=== PATIENT | female | born 2000 | race Caucasian/White ===

== ENCOUNTER 2018-12-22 12:25 | Outpatient (RCR) | payer BC, OTHER ==
[~2018-12-22 12:25] MED LIST: AMOX500C2 PO; FLVX50T PO; MULT-608 PO
== END 2019-03-22 | disposition home or self-care (01) ==
LOC: CARD 12:25
PROVIDERS: ATTEND Nurse Practitioner Primary Care
DX: I49.1 Atrial premature depolarization (principal); I10 Essential (primary) hypertension; R00.0 Tachycardia, unspecified
CPT/HCPCS: 93225; 93226

== ENCOUNTER → 2019-03-09 | Outpatient (CLI) | payer BC, OTHER ==
[2019-03-09 17:40] VITALS: BP 148/82
--- NOTE | 2019-03-09 17:40 | Cardiology Stress Test Report ---
Stress Test Report Date of Procedure/Referring: Date of Procedure: Mar 09, 2019 PCP Tai Roberts MD Admitting Physician Sherron Boggs DO Indications: Palpitation Baseline Heart Rate: 93 Baseline Blood Pressure: Blood Pressure Systolic: 148 Blood Pressure Diastolic: 82 Baseline EKG: Baseline EKG: normal sinus rhythm Summary/Conclusion: Summary: In summary, the patient started exercising with a baseline heart rate, blood pressure and EKG mentioned above Patient was able to exercise for a total of 7 minutes on Dimitris protocol, 8.5 METs Maximum heart rate 189 Maximum blood pressure 170/64 Stress EKG Minimal nondiagnostic changes Recovery EKG Return to baseline Conclusion: 1. Good exercise tolerance for a total of 7 minutes on Dimitris protocol, 8.5 METs, achieving 100 percent of maximum expected heart rate 2. Minimal nondiagnostic EKG changes with exercise returned to baseline during recovery 3. No arrhythmia was noted TAI ROBERTS MD Mar 09, 2019 17:40 POS
== END ==
LOC: CARD 08:01
PROVIDERS: ATTEND Internal Medicine Cardiovascular Disease
DX: I10 Essential (primary) hypertension (principal); R00.2 Palpitations; R00.0 Tachycardia, unspecified; R06.09 Other forms of dyspnea
CPT/HCPCS: 93017; 93306

== ENCOUNTER 2019-04-13 12:30 | Outpatient (RCR) | payer BC | END 2019-07-06 | disposition home or self-care (01) | LOC: CARD 12:30 | PROVIDERS: ATTEND Physician Assistant | DX: I49.1 Atrial premature depolarization (principal); I10 Essential (primary) hypertension; I49.8 Other specified cardiac arrhythmias | CPT/HCPCS: 93270 ==